=== PATIENT | female | born 1985 | race Caucasian/White ===

== ENCOUNTER 2016-10-28 11:28 | Emergency (ER) | payer BC ==
[~2016-10-28] VITALS: Ht 162.6 cm; Wt 69.5 kg
[2016-10-28 11:30] VITALS: TEMP 36.5; Ht 162.6 cm; Wt 69.5 kg
[2016-10-28] MEDS ORDERED: SODIUM CHLORIDE 0.9% 1000ML 1,000 ML IV STA (12:54)
[2016-10-28 13:22] LABS: BASO % 0.4 %; BASO ABS # 0.02 K/uL (0-0.2); COMPLETE YES; EOS % 0.4 %; HEMATOCRIT 33.4 % (37-47); IG% 0.2 %; LYMPH % 19.1 %; LYMPH ABS # 1.07 K/uL (1.2-3.4); MEAN CELL VOLUME 85.9 fL (80-100); MEAN CORPUSCULAR HEMOGLOBIN 29.8 pg (25-34); MEAN CORPUSCULAR HGB CONC 34.7 g/dl (32-36); MONO % 6.2 %; NEUT % 73.7 %; PLATELET COUNT 245 K/uL (130-400); RED BLOOD COUNT 3.89 M/uL (4.2-5.4); WHITE BLOOD COUNT 5.61 K/uL (4.8-10.8)
[2016-10-28 13:36] LABS: MANUAL MICROSCOPIC REQUIRED? NO; REVIEW REQ? NO; URINE APPEARANCE TURBID (CLEAR); URINE BILIRUBIN NEG (NEG); URINE COLOR YELLOW; URINE EPITHELIAL CELL AUTO >30 /lpf (0-5); URINE NITRITE NEG (NEG); URINE SPECIFIC GRAVITY 1.021 (1.000-1.030); UROBILINOGEN NEG (NEG); ZZUR CULT IF INDIC CLEAN CATCH NO
[2016-10-28 13:36] LABS: PARTIAL THROMBOPLASTIN RATIO 0.8; PROTHROMBIN TIME (PATIENT) 10.6 SECONDS (9.0-12.0)
[2016-10-28 13:40] LABS: PREG INTERNAL NEGATIVE QC NEG CLEAR BACKGROUND; PREG INTERNAL POSITIVE QC POS CONTROL LINE
[2016-10-28 13:58] LABS: BUN/CREATININE RATIO 17.9 (10-20); CALCIUM 8.6 mg/dl (8.5-10.1); CREATININE 0.65 mg/dl (0.60-1.20); POTASSIUM 4.2 mmol/L (3.5-5.1)
[2016-10-28 14:01] LABS: ALB/GLOB RATIO 1.5 (0.9-2)
--- NOTE | 2016-10-28 15:07 | DIAGNOSTIC IMAGING REPORT ---
EXAMINATION: PELVIC ULTRASOUND CLINICAL HISTORY: Vaginal bleeding BLEEDING COMPARISON STUDY: None FINDINGS: The uterus measured 8.5 cm. 2 small submucosal fibroids measuring no more than 1.5 cm. The endometrial stripe measured 1.7 cm. The right ovary measured 3.3 cm with normal vascular flow. The left ovary measured 3.4 cm with normal vascular flow. There is no ultrasonographic evidence of ovarian torsion. It should be noted that ovarian torsion can be present with normal Doppler ultrasonographic findings. There was no evidence of pathologic free pelvic fluid. IMPRESSION: Endometrial prominence at 1.7 cm. This potentially is secondary to the secretory phase of menstrual cycle versus hyperplastic change. Otherwise negative pelvic ultrasound Electronically signed by: Dale Portillo M.D. 10/28/2016 3:05 PM Dictated Date/Time: 10/28/2016 3:03 PM
[2016-10-28] MEDS ORDERED: NORE5TAB5 PO (16:54)
--- NOTE | 2016-10-28 16:56 | EMERGENCY ROOM VISIT NOTE ---
History First contact with patient: 12:26 Chief Complaint: ED VAG BLEEDING Stated Complaint: EXCESSIVE BLEEDING History of Present Illness The patient is a 31 year old female who presents to the Emergency Room via private vehicle with complaints of "excessive bleeding". The patient states that she has been on oral contraceptives for 10 years which was Loestrin. She stopped taking them in July due to migraines to see if it would help however her migraines have persisted. Since that time she has had heavy vaginal bleeding every 7 days but this month it is exceptionally worse as she has been bleeding for 10 days now. She states that she is saturating a tampon and a pad every hour with large blood clots. There is associated dizziness, lightheadedness, cold/numbness in her extremities, shortness of breath which started yesterday after she began bleeding excessively amounts from the vagina. She is , has no history of thyroid disorders, her mother does have a history of fibroids but she is denied and history of plastic sewer issues in the past. Her 2 aunts have had heavy vaginal bleeding. She denies chance of . Social History Smoking Status: Never Smoker Current/Historical Medications Scheduled Norethindrone (Aygestin), 5 MG PO DIRECTED Allergies Coded Allergies: No Known Allergies (Unverified , 10/28/16) Physical Exam Vital Signs Date Time Temp Pulse Resp B/P Pulse Ox O2 Delivery O2 Flow Rate FiO2 10/28/16 17:14 83 16 95/67 98 10/28/16 15:15 87 16 98/63 98 10/28/16 13:41 79 16 102/57 100 92/57 112 73/42 10/28/16 11:47 111/77 10/28/16 11:30 36.5 103 18 99/69 100 Room Air Physical Exam VITAL SIGNS - Vital signs and nursing notes were reviewed. Patient is afebrile , she is hypotensive at 99/69, she is subtly tachycardic but is saturating well on room air at 100%. GENERAL -31-year-old female appearing her stated age who is in no acute distress , but pale in appearance. Communicates well with provider and answers questions appropriately. SKIN - Without rashes. No petechial rashes. HEAD - NC/AT. EYES - PERRL with EOMI bilaterally. Sclera anicteric. Palpebral conjunctiva pink and moist with no injection noted. EARS - No deformities of external structures noted on gross examination bilaterally NOSE - Midline and without cyanosis. No epistaxis or purulent drainage noted. MOUTH/OROPHARYNX - Without perioral cyanosis. NECK - Neck with FROM. Supple to palpation. LUNGS - Chest wall symmetric without accessory muscle use, intercostals retractions, or central cyanosis. Normal vesicular breath sounds CTA B/L. No wheezes, rales, or rhonchi appreciated. CARDIAC - RRR with S1/S2. No murmur, rubs, or gallops appreciated. ABDOMEN - Abdominal contour without pulsations or visible masses. BS normoactive all four quadrants. No tenderness, palpable masses, hepatosplenomegaly, or ascites noted. EXTREMITIES - No clubbing or peripheral cyanosis. No pretibial edema present. +5 /5 strength noted in UE/LE bilaterally. NEUROLOGIC - Cranial nerves II through XII grossly intact. Sensory intact to light touch throughout. PSYCH - A&Ox3 and cooperates fully with examiner. Pt is very pleasant and interacts well with examiner. PELVIC EXAM: The patient's nurse was present to assist with exam, and dip tube assembler machine. The patient was educated upon what her pelvic exam was, and she was offered to decline. Patient did not decline. I explained to her the pelvic exam. The patient was prepared and positioned for best examination. Patient was positioned by nurse. When patient was being positioned there was a large amount of blood being expressed from the vagina. There was a large blood clot at the introitus. This was removed without difficulty. The external genitalia , mons pubis, labia majora, labia minora, clitoris, he urethral meatus, and shortness, Bartholin's glands, perineum, and anus were within normal limits. The speculum was held then a 45 angle and properly lubricated, the speculum was inserted without difficulty to the depth of the cervix by Physician Display Mechanic Student under my direct supervision. Speculum was then opened slowly. Cervix was identified. The cervix was within normal limits and did display active bleeding but no extravasation or hemorrhage. I then explained to the patient that I was in a perform a bimanual pelvic examination. Physician Assitant then introduced the index finger into the vaginal vault, palpated the cervix and cervical os and noted no abnormalities. This again was under my direct supervision. The uterine body, apex and fundus were then palpated and were within normal limits, and position. The ovaries were then palpated with hand pressing over the lower quadrants of the abdomen and my right index finger pressing in the region of the ovary with no abnormal findings. Patient did not experience any discomfort. The exam was concluded, the nurse felt the patient back to her bed. Exam was unremarkable and tolerated well without complication. Medical Decision & Procedures ER Provider Diagnostic Interpretation: EXAMINATION: PELVIC ULTRASOUND CLINICAL HISTORY: Vaginal bleeding BLEEDING COMPARISON STUDY: None FINDINGS: The uterus measured 8.5 cm. 2 small submucosal fibroids measuring no more than 1.5 cm. The endometrial stripe measured 1.7 cm. The right ovary measured 3.3 cm with normal vascular flow. The left ovary measured 3.4 cm with normal vascular flow. There is no ultrasonographic evidence of ovarian torsion. It should be noted that ovarian torsion can be present with normal Doppler ultrasonographic findings. There was no evidence of pathologic free pelvic fluid. IMPRESSION: Endometrial prominence at 1.7 cm. This potentially is secondary to the secretory phase of menstrual cycle versus hyperplastic change. Otherwise negative pelvic ultrasound Electronically signed by: Dale Portillo M.D. 10/28/2016 3:05 PM Laboratory Results 10/28/16 13:00 Red Blood Count 3.89, Mean Corpuscular Volume 85.9, Mean Corpuscular Hemoglobin 29.8, Mean Corpuscular Hemoglobin Concent 34.7, Mean Platelet Volume 12.0, Neutrophils (%) (Auto) 73.7, Lymphocytes (%) (Auto) 19.1, Monocytes (%) (Auto) 6.2, Eosinophils (%) (Auto) 0.4, Basophils (%) (Auto) 0.4, Neutrophils # (Auto) 4.14, Lymphocytes # (Auto) 1.07, Monocytes # (Auto) 0.35, Eosinophils # (Auto) 0.02, Basophils # (Auto) 0.02 10/28/16 13:00 Test 10/28/16 11:42 10/28/16 13:00 Urine Color YELLOW Urine Appearance TURBID (CLEAR) Urine pH 5.0 (4.5-7.5) Urine Specific [place] 1.021 (1.000-1.030) Urine Protein TRACE (NEG) Urine Glucose (UA) NEG (NEG) Urine Ketones NEG (NEG) Urine Occult Blood 3+ (NEG) Urine Nitrite NEG (NEG) Urine Bilirubin NEG (NEG) Urine Urobilinogen NEG (NEG) Urine Leukocyte Esterase TRACE (NEG) Urine WBC (Auto) 1-5 /hpf (0-5) Urine RBC (Auto) >30 /hpf (0-4) Urine Hyaline Casts (Auto) 1-5 /lpf (0-5) Urine Epithelial Cells (Auto) >30 /lpf (0-5) Urine Bacteria (Auto) NEG (NEG) White Blood Count 5.61 K/uL (4.8-10.8) Red Blood Count 3.89 M/uL (4.2-5.4) Hemoglobin 11.6 g/dL (12.0-16.0) Hematocrit 33.4 % (37-47) Mean Corpuscular Volume 85.9 fL (80-100) Mean Corpuscular Hemoglobin 29.8 pg (25-34) Mean Corpuscular Hemoglobin Concent 34.7 g/dl (32-36) Platelet Count 245 K/uL (130-400) Mean Platelet Volume 12.0 fL (7.4-10.4) Neutrophils (%) (Auto) 73.7 % Lymphocytes (%) (Auto) 19.1 % Monocytes (%) (Auto) 6.2 % Eosinophils (%) (Auto) 0.4 % Basophils (%) (Auto) 0.4 % Neutrophils # (Auto) 4.14 K/uL (1.4-6.5) Lymphocytes # (Auto) 1.07 K/uL (1.2-3.4) Monocytes # (Auto) 0.35 K/uL (0.11-0.59) Eosinophils # (Auto) 0.02 K/uL (0-0.5) Basophils # (Auto) 0.02 K/uL (0-0.2) RDW Standard Deviation 38.7 fL (36.4-46.3) RDW Coefficient of Variation 12.5 % (11.5-14.5) Immature Granulocyte % (Auto) 0.2 % Immature Granulocyte # (Auto) 0.01 K/uL (0.00-0.02) Prothrombin Time 10.6 SECONDS (9.0-12.0) Prothromb Time International Ratio 1.0 (0.9-1.1) Activated Partial Thromboplast Time 21.7 SECONDS (21.0-31.0) Partial Thromboplastin Ratio 0.8 Anion Gap 7.0 mmol/L (3-11) Est Creatinine Clear Calc Drug Dose 122.3 ml/min Estimated GFR () 139.1 Estimated GFR (Non- 120.0 BUN/Creatinine Ratio 17.9 (10-20) Calcium Level 8.6 mg/dl (8.5-10.1) Total Bilirubin 0.4 mg/dl (0.2-1) Aspartate Amino Transf (AST/SGOT) 20 U/L (15-37) Alanine Aminotransferase (ALT/SGPT) 40 U/L (12-78) Alkaline Phosphatase 52 U/L (45-117) Total Protein 6.7 gm/dl (6.4-8.2) Albumin 4.0 gm/dl (3.4-5.0) Globulin 2.7 gm/dl (2.5-4.0) Albumin/Globulin Ratio 1.5 (0.9-2) Human Chorionic Gonadotropin, Qual NEG (NEG) Medications Administered Medications (Trade) Dose Ordered Sig/Brayan Route Start Time Stop Time Status Last Admin Dose Admin Sodium Chloride (Nss 1000ml) 1,000 ml @ 999 mls/hr Q1H1M STAT IV 10/28/16 12:54 10/28/16 13:54 DC 10/28/16 13:47 999 MLS/HR Medical Decision Patient was seen and evaluated as above. After many thorough history and physical examination IV access was obtained and a type and cross, CBC, CMP, ultrasound pelvic complete non-OB, blood test, UA clean catch culture if indicated, coagulation studies, stat EKG, orthostatic vital signs, 1 L of fluid for hydration, and type and screen were ordered secondary to subjective and objective examination findings. I was called by the awning spreader's who asked if I would also like an ultrasound of the pelvis transvaginal and I indicated that this would be helpful. Patient was anemic with a hemoglobin of 11.6 without leukocytosis. PT and INR were within normal limits. CMP revealed no abnormality. Electrolyte, kidney, liver function was all within normal limits. test was negative. Urine revealed trace protein, 3+ occult blood, trace leukocyte esterase, and greater than 30 red blood cells and greater than 30 epithelial cells. This is likely contaminated sample with underlying blood. Ultrasound results as above. 2 fibroids and thickened endometrial lining. EKG revealed normal sinus rhythm rate of 85 bpm without ectopy or ischemic changes noted. I did elect to discuss the case with the calibration laboratory technician box icer and spoke with Dr. Greer regarding the patient's case. She encouraged me to start the patient on Aygestin 5 mg 4 times daily for 4 days, 3 times daily for 3 days, 2 times daily for 2 days, and once daily for 1 week. She also instructed me to have the patient call her office first thing tomorrow morning to schedule follow-up. I do believe that an outpatient management is appropriate. Patient was instructed upon this plan and seemed happy with plan of care. She was instructed to return with any worsening of her symptoms. She was educated upon today's findings, had questions answered prior to discharge, and was discharged home in good condition. In the evaluation treatment of this patient the following differential diagnoses were entertained: Dysfunctional uterine bleeding, , acute cystitis, pyelonephritis, vaginal hemorrhage, vaginal laceration, cervix malignancy, uterine mass, among others. Impression Primary Impression: Vaginal bleeding Additional Impression: Anemia Departure Information Dispostion Home / Self-Care Condition GOOD Prescriptions Norethindrone (Aygestin) 5 Mg Tab 5 MG PO DIRECTED for 16 Days, #36 TAB 1 tab: 4 times daily x4 days, then 3 times daily x3 days, then 2 times daily x2 days, then 1 tablet daily x 7 days. Prov: Garland Zepeda PA-C 10/28/16 Referrals No Doctor, Assigned (PCP) Jaclyn Greer, D.O. Patient Instructions [facility] Additional Instructions You were seen in the emergency apart for vaginal bleeding. Your blood count was slightly low but not to where we would need to transfuse blood. Your case was discussed with Dr. Greer, an OBGYN. Please call the phone number listed above for her office to schedule an appointment. Please tell them that you were seen in the emergency department and are to schedule follow-up as soon as possible. It was recommended that I place you on Aygestin. This is to help with the vaginal bleeding. Please take this as directed. This is one tablet 4 times daily for 4 days, 3 times daily for 3 days, 2 times daily for 2 days then 1 tablet daily for 1 week. 36 tablets total. This is to help stop the bleeding. Please return to the emergency department with any new/concerning symptoms. Problem Qualifiers
[2016-10-28 17:14] VITALS: BP 95/67; PULSE 83; O2SAT 98
== END 2016-10-28 17:16 | disposition home or self-care (01) ==
LOC: C.EDB 11:30 → C.EDC 17:16
DX: N93.9 Abnormal uterine and vaginal bleeding, unspecified (principal); D64.9 Anemia, unspecified

== ENCOUNTER → 2018-05-15 | Outpatient (CLI) | payer OTHER | END | disposition home or self-care (01) | LOC: C.PAPS 18:30 | PROVIDERS: ATTEND Obstetrics & Gynecology | DX: Z01.419 Encounter for gynecological examination (general) (routine) without abnormal findings (principal) ==